=== PATIENT | male | born 1945 | race Caucasian/White ===

== ENCOUNTER 2017-02-06 11:19 | Day surgery (SDC) | payer MEDICARE, OTHER ==
[~2017-02-06 11:19] MED LIST: ADLT ASA LOW81 MG PO; ADVAIR DISK1 INH; ALLERGY RELF10 M1 PO; ALLOPURINOL100 MG PO; BAYER CHEWABLE81 MG PO; BENADRYL25 MG PO; BUMETANIDE2 MG IN; CARVEDILOL6.25 MG PO; CITALOPRAM20 MG PO; CLINDAMYCIN300 M1 PO; COLACE100 MG PO; COUMADIN2.5 MG PO; DOXAZOSIN4 M1 PO; DOXAZOSIN4 MG PO; ESCITALOPRAM OX10 MG PO; FAMOTIDINE20 M1 PO; FINASTERIDE5 MG PO; FLONASE NASAL50 MCG; FLUTICASONE50 MCG; FUROSEMIDE40 MG PO; FUROSEMIDE80 MG OR; HOME O2; HYDRALAZINE25 MG PO; IPRATROPIU0.5 MG/3 M; K-TABS10 MEQ PO; KEFLEX500 M1 PO; KLOR-CON 1010 ME1 PO; LANTUS100 MG/ML SC; LEVAQUIN500 MG PO; LIPITOR20 MG PO; LISINOPRIL10 MG PO; LOPRESSOR12.5 MG PO; LORTAB5 PO; MACROBID100 MG PO; METO50TA52 PO; MILK OF MAG30 ML/UDC PO; NOVOLOG100 IU/1 M; OXYCODONE/ACETA1 TA1; OXYCODONE5 M1 OR; PRAVASTATIN20 MG PO; PREDNISONE10 MG PO; PREVACID30 M2 PO; PRILOSEC20 MG/CAP PO; SPIRONOLACT25 MG PO; SPIRONOLACTONE25 MG PO; TAMSULOSIN0.4 MG PO; TOPROL XL25 MG PO; ULORIC40 MG PO; VENTOLIN HFA IN; VITAMIN C PO; WARFARIN2.5 MG PO; WARFARIN3 MG PO; WARFARIN4 MG PO; ZESTRIL/PRIN5 MG/TA1 PO; ZOFRAN ODT4 MG PO; ZYRTEC10 MG PO; [UNRECOGNIZED DRUG - OTHER] PO
[2017-02-06 15:06] VITALS: BP 108/55
== END 2017-02-06 15:00 | disposition home or self-care (01) ==
LOC: ORM 11:19
PROVIDERS: ATTEND Neurological Surgery
PROC: 3E0T33Z Introduction of Anti-inflammatory into Peripheral Nerves and Plexi, Percutaneous Approach (ICD-10-PCS; principal; 2017-02-06)
PROC: 3E0T3BZ Introduction of Anesthetic Agent into Peripheral Nerves and Plexi, Percutaneous Approach (ICD-10-PCS; 2017-02-06)
DX: M54.17 Radiculopathy, lumbosacral region (principal); M48.06 Spinal stenosis, lumbar region; J44.9 Chronic obstructive pulmonary disease, unspecified

== ENCOUNTER 2017-06-18 06:31 | Inpatient (IN) | payer MEDICARE, OTHER ==
[~2017-06-18] VITALS: Ht 175.3 cm; Wt 142.1 kg
[2017-06-18] MEDS ORDERED: TYLENOL 500MG TAB PO (07:17)
[2017-06-18 07:18] LABS: HEMATOCRIT 37.8 % (39.0-50.0); IMMATURE GRANULOCYTES 0.4 % (0.0-1.0); MEAN CELL VOLUME 79.9 fL CALC (80.0-100.0); MEAN CORPUSCULAR HGB 25.4 pG CALC (26.0-32.0); MEAN CORPUSCULAR HGB CONC 31.7 g/L CALC (32.0-36.0); NEUT# 10.48 thou/uL (1.82-7.42); RED BLOOD COUNT 4.73 mill/uL (4.70-6.10); RED CELL DISTRI WIDTH 18.1 % (11.5-15.5)
[2017-06-18 07:33] LABS: ALBUMIN 4.2 g/dL (3.2-5.0); BILIRUBIN, TOTAL 0.7 mg/dL (0.0-1.4); CALCIUM 9.9 mg/dL (8.4-10.2); CREATININE 1.4 mg/dL (0.7-1.3); POTASSIUM 4.7 mmol/l (3.5-5.1); TOTAL PROTEIN 7.1 g/dL (6.3-8.2)
[2017-06-18 07:36] LABS: INTERNATIONAL NORMALIZED RATIO 2.5 RATIO (0.7-1.3); PROTHROMBIN TIME 29.4 SECONDS (9.0-12.5)
[2017-06-18 09:11] LABS: URINE BILIRUBIN - DIPSTICK NEGATIVE (NEGATIVE); URINE BLOOD DIPSTICK NEGATIVE (NEGATIVE); URINE CLARITY CLEAR; URINE COLOR YELLOW; URINE GLUCOSE - DIPSTICK NEGATIVE (NEGATIVE); URINE KETONE NEGATIVE (NEGATIVE); URINE LEUK ESTERASE NEGATIVE (NEGATIVE); URINE NITRITE - DIPSTICK NEGATIVE (Negative); URINE PROTEIN - DIPSTICK NEGATIVE (NEG-TRACE); URINE SPECIFIC GRAVITY <=1.005; URINE UROBILINOGEN - DIPSTICK 0.2 E.U./dL (0.2)
[2017-06-18 10:50] VITALS: BP 119/65
[2017-06-18 15:31] VITALS: BP 122/75
[2017-06-18 19:27] VITALS: BP 119/41
[2017-06-19] VITALS (7 sets, daily range): BP systolic 91–132; BP diastolic 30–78
[2017-06-19 05:56] LABS: HEMATOCRIT 35.6 % (39.0-50.0); HEMOGLOBIN 11.3 g/dl (14.0-18.0); IMMATURE GRANULOCYTES 0.8 % (0.0-1.0); MEAN CORPUSCULAR HGB 25.4 pG CALC (26.0-32.0); MEAN CORPUSCULAR HGB CONC 31.7 g/L CALC (32.0-36.0); NEUT# 19.15 thou/uL (1.82-7.42); RED BLOOD COUNT 4.45 mill/uL (4.70-6.10); RED CELL DISTRI WIDTH 17.9 % (11.5-15.5)
[2017-06-19 06:05] LABS: INTERNATIONAL NORMALIZED RATIO 2.5 RATIO (0.7-1.3); PROTHROMBIN TIME 28.6 SECONDS (9.0-12.5)
[2017-06-19 06:08] LABS: ANION GAP 17 (6-22 (CALC)); BUN 31 mg/dL (8-23); BUN/CREATININE RATIO 24 (12-20 (CALC)); CALCIUM 8.8 mg/dL (8.4-10.2); CARBON DIOXIDE 20 mmol/l (22-30); CHLORIDE 96 mmol/l (95-108); CREATININE 1.3 mg/dL (0.7-1.3); GFR 54 ML/MIN (>=60 (CALC)); GFR FOR AFR.AMER. > 60 ML/MIN (>=60 (CALC)); GLUCOSE 181 mg/dL (82-115); SODIUM 127 mmol/l (137-146)
[2017-06-19 06:19] LABS: POTASSIUM 5.7 mmol/l (3.5-5.1)
[2017-06-19 08:32] LABS: ALKALINE PHOSPHATASE 73 u/l (38-126); ANION GAP 18 (6-22 (CALC)); BILIRUBIN, TOTAL 0.5 mg/dL (0.0-1.4); BUN 31 mg/dL (8-23); BUN/CREATININE RATIO 23 (12-20 (CALC)); CARBON DIOXIDE 22 mmol/l (22-30); CHLORIDE 94 mmol/l (95-108); CREATININE 1.3 mg/dL (0.7-1.3); GFR 54 ML/MIN (>=60 (CALC)); GFR FOR AFR.AMER. > 60 ML/MIN (>=60 (CALC)); GLUCOSE 179 mg/dL (82-115); SGOT/AST 25 u/l (19-48); SGPT/ALT 31 u/l (11-66); SODIUM 129 mmol/l (137-146); TOTAL PROTEIN 6.8 g/dL (6.3-8.2)
[2017-06-19 08:38] LABS: POTASSIUM 5.3 mmol/l (3.5-5.1)
[2017-06-19 14:42] LABS: CALCIUM 8.6 mg/dL (8.4-10.2); CREATININE 1.4 mg/dL (0.7-1.3); POTASSIUM 5.1 mmol/l (3.5-5.1)
[2017-06-20 04:15] VITALS: BP 115/65
[2017-06-20 06:02] LABS: CALCIUM 9.1 mg/dL (8.4-10.2); CREATININE 1.4 mg/dL (0.7-1.3)
[2017-06-20 06:17] LABS: POTASSIUM 5.3 mmol/l (3.5-5.1)
[2017-06-20 06:27] LABS: HEMATOCRIT 36.5 % (39.0-50.0); HEMOGLOBIN 11.6 g/dl (14.0-18.0); IMMATURE GRANULOCYTES 0.8 % (0.0-1.0); MEAN CELL VOLUME 81.1 fL CALC (80.0-100.0); MEAN CORPUSCULAR HGB 25.8 pG CALC (26.0-32.0); MEAN CORPUSCULAR HGB CONC 31.8 g/L CALC (32.0-36.0); NEUT# 20.39 thou/uL (1.82-7.42); RED BLOOD COUNT 4.5 mill/uL (4.70-6.10)
[2017-06-20 06:33] LABS: INTERNATIONAL NORMALIZED RATIO 2.2 RATIO (0.7-1.3); PROTHROMBIN TIME 25.5 SECONDS (9.0-12.5)
[2017-06-20 09:00] VITALS: BP 123/67
[2017-06-20 11:35] VITALS: BP 125/77
[2017-06-20 16:03] VITALS: BP 137/83
[2017-06-20 19:10] VITALS: BP 120/66; BP 135/75
[2017-06-20 22:30] VITALS: BP 111/67
[2017-06-21 05:25] VITALS: BP 132/74
[2017-06-21 06:04] LABS: HEMATOCRIT 37.8 % (39.0-50.0); HEMOGLOBIN 11.7 g/dl (14.0-18.0); IMMATURE GRANULOCYTES 1.3 % (0.0-1.0); MEAN CELL VOLUME 82.7 fL CALC (80.0-100.0); MEAN CORPUSCULAR HGB 25.6 pG CALC (26.0-32.0); NEUT# 17.17 thou/uL (1.82-7.42); RED BLOOD COUNT 4.57 mill/uL (4.70-6.10); RED CELL DISTRI WIDTH 18.3 % (11.5-15.5)
[2017-06-21 06:14] LABS: ANION GAP 18 (6-22 (CALC)); BUN 36 mg/dL (8-23); BUN/CREATININE RATIO 29 (12-20 (CALC)); CALCIUM 9.4 mg/dL (8.4-10.2); CARBON DIOXIDE 23 mmol/l (22-30); CHLORIDE 101 mmol/l (95-108); CREATININE 1.2 mg/dL (0.7-1.3); GFR 59 ML/MIN (>=60 (CALC)); GFR FOR AFR.AMER. > 60 ML/MIN (>=60 (CALC)); GLUCOSE 145 mg/dL (82-115); POTASSIUM 4.9 mmol/l (3.5-5.1); SODIUM 137 mmol/l (137-146)
[2017-06-21 06:15] LABS: INTERNATIONAL NORMALIZED RATIO 2.1 RATIO (0.7-1.3); PROTHROMBIN TIME 24.2 SECONDS (9.0-12.5)
[2017-06-21 08:02] VITALS: BP 136/47
[2017-06-21 11:44] VITALS: BP 125/58
[2017-06-21 16:05] VITALS: BP 134/57
[2017-06-21 19:00] VITALS: BP 133/56
[2017-06-21 23:10] VITALS: BP 121/60
[2017-06-22 03:40] VITALS: BP 156/81
[2017-06-22 05:37] LABS: ANION GAP 17 (6-22 (CALC)); BUN 33 mg/dL (8-23); BUN/CREATININE RATIO 33 (12-20 (CALC)); CALCIUM 8.8 mg/dL (8.4-10.2); CARBON DIOXIDE 21 mmol/l (22-30); CHLORIDE 102 mmol/l (95-108); GFR > 60 ML/MIN (>=60 (CALC)); GFR FOR AFR.AMER. > 60 ML/MIN (>=60 (CALC)); GLUCOSE 151 mg/dL (82-115); POTASSIUM 5.1 mmol/l (3.5-5.1); SODIUM 136 mmol/l (137-146)
[2017-06-22 05:40] LABS: INTERNATIONAL NORMALIZED RATIO 2.5 RATIO (0.7-1.3); PROTHROMBIN TIME 28.2 SECONDS (9.0-12.5)
[2017-06-22 05:52] LABS: HEMOGLOBIN 10.9 g/dl (14.0-18.0); IMMATURE GRANULOCYTES 1.3 % (0.0-1.0); MEAN CELL VOLUME 82.7 fL CALC (80.0-100.0); MEAN CORPUSCULAR HGB 25.8 pG CALC (26.0-32.0); MEAN CORPUSCULAR HGB CONC 31.1 g/L CALC (32.0-36.0); NEUT# 14.26 thou/uL (1.82-7.42); RED BLOOD COUNT 4.23 mill/uL (4.70-6.10); RED CELL DISTRI WIDTH 18.6 % (11.5-15.5)
[2017-06-22 08:29] VITALS: BP 132/70
[2017-06-22] MEDS ORDERED: FERROUS SULFAT325 MG PO (09:40)
[2017-06-22] MEDS ORDERED: IPRATROPIU0.5 MG/3 M IN (09:40)
[2017-06-22] MEDS ORDERED: ZITHROMAX500 MG PO (09:40)
[2017-06-22] MEDS ORDERED: PREDNISONE10 MG PO (09:41)
[2017-06-22 12:22] VITALS: BP 123/72
== END 2017-06-22 14:08 | disposition home health service (06) | DRG 190 ==
LOC: ED 06:31 → ED-I 10:00 → ED 10:23 → MS2 10:24
PROVIDERS: Emergency Medicine; Nurse Practitioner Family; ADMIT Internal Medicine; ATTEND Internal Medicine
DX: J44.1 Chronic obstructive pulmonary disease with (acute) exacerbation (principal); J18.9 Pneumonia, unspecified organism; N17.9 Acute kidney failure, unspecified; J96.11 Chronic respiratory failure with hypoxia; I13.0 Hypertensive heart and chronic kidney disease with heart failure and stage 1 through stage 4 chronic kidney disease, or unspecified chronic kidney disease; E11.22 Type 2 diabetes mellitus with diabetic chronic kidney disease; I49.5 Sick sinus syndrome; I50.42 Chronic combined systolic (congestive) and diastolic (congestive) heart failure; E87.1 Hypo-osmolality and hyponatremia; Z68.42 Body mass index [BMI] 45.0-49.9, adult; I25.10 Atherosclerotic heart disease of native coronary artery without angina pectoris; M19.90 Unspecified osteoarthritis, unspecified site; E66.01 Morbid (severe) obesity due to excess calories; E78.5 Hyperlipidemia, unspecified; I48.2 Chronic atrial fibrillation; G47.33 Obstructive sleep apnea (adult) (pediatric); I65.29 Occlusion and stenosis of unspecified carotid artery; F32.9 Major depressive disorder, single episode, unspecified; R53.82 Chronic fatigue, unspecified; J84.10 Pulmonary fibrosis, unspecified; J44.0 Chronic obstructive pulmonary disease with (acute) lower respiratory infection; I35.0 Nonrheumatic aortic (valve) stenosis; N18.3 Chronic kidney disease, stage 3 (moderate); M10.9 Gout, unspecified; E87.5 Hyperkalemia; Z98.61 Coronary angioplasty status; Z99.81 Dependence on supplemental oxygen; Z95.1 Presence of aortocoronary bypass graft; Z87.891 Personal history of nicotine dependence; D63.1 Anemia in chronic kidney disease; Z79.01 Long term (current) use of anticoagulants; Z91.14 Patient's other noncompliance with medication regimen

== ENCOUNTER 2017-08-03 10:49 | Emergency (ER) | payer MEDICARE, OTHER ==
[~2017-08-03] VITALS: Ht 175.3 cm; Wt 136.0 kg
[~2017-08-03 10:49] MED LIST changes: +FERROUS SULFAT325 MG PO; +IPRATROPIU0.5 MG/3 M IN; +TYLENOL 500MG TAB PO; +ZITHROMAX500 MG PO
[2017-08-03 11:57] VITALS: BP 137/79
== END 2017-08-03 12:16 | disposition home or self-care (01) ==
LOC: ED 10:49
DX: S51.012A Laceration without foreign body of left elbow, initial encounter (principal); I11.0 Hypertensive heart disease with heart failure; I50.9 Heart failure, unspecified; E11.9 Type 2 diabetes mellitus without complications; J44.9 Chronic obstructive pulmonary disease, unspecified; I48.91 Unspecified atrial fibrillation; I25.10 Atherosclerotic heart disease of native coronary artery without angina pectoris; E66.9 Obesity, unspecified; Z95.1 Presence of aortocoronary bypass graft; W01.0XXA Fall on same level from slipping, tripping and stumbling without subsequent striking against object, initial encounter

== ENCOUNTER 2018-05-01 16:21 | Inpatient (IN) | payer MEDICARE, OTHER ==
[~2018-05-01] VITALS: Ht 175.3 cm; Wt 134.4 kg
[2018-05-01 17:31] LABS: HEMATOCRIT 40.1 % (39.0-50.0); HEMOGLOBIN 12.7 g/dl (14.0-18.0); IMMATURE GRANULOCYTES 0.8 % (0.0-1.0); MEAN CELL VOLUME 86.1 fL CALC (80.0-100.0); MEAN CORPUSCULAR HGB 27.3 pG CALC (26.0-32.0); MEAN CORPUSCULAR HGB CONC 31.7 g/L CALC (32.0-36.0); NEUT# 13.74 thou/uL (1.82-7.42); RED BLOOD COUNT 4.66 mill/uL (4.70-6.10); RED CELL DISTRI WIDTH 17.1 % (11.5-15.5)
[2018-05-01 17:47] LABS: ALBUMIN 3.9 g/dL (3.2-5.0); ALKALINE PHOSPHATASE 77 u/l (38-126); ANION GAP 12 (6-22 (CALC)); BILIRUBIN, TOTAL 0.5 mg/dL (0.0-1.4); BUN 19 mg/dL (8-23); BUN/CREATININE RATIO 21 (12-20 (CALC)); CARBON DIOXIDE 26 mmol/l (22-30); CHLORIDE 100 mmol/l (95-108); CREATININE 0.9 mg/dL (0.7-1.3); GFR > 60 ML/MIN (>=60 (CALC)); GFR FOR AFR.AMER. > 60 ML/MIN (>=60 (CALC)); POTASSIUM 3.7 mmol/l (3.5-5.1); SGOT/AST 27 u/l (19-48); SGPT/ALT 34 u/l (11-66); SODIUM 134 mmol/l (137-146); TOTAL PROTEIN 7.2 g/dL (6.3-8.2)
[2018-05-01] MEDS ORDERED: PULMICORT0.5MG/2ML IN (18:02)
[2018-05-01] MEDS ORDERED: GABAPENTIN300 M2 (18:03)
[2018-05-01 19:20] VITALS: BP 132/80
[2018-05-01] MEDS ORDERED: OXYCONTIN15 MG PO (20:45)
[2018-05-02] VITALS (8 sets, daily range): BP systolic 100–136; BP diastolic 55–74
[2018-05-02 02:41] LABS: URINE BILIRUBIN - DIPSTICK NEGATIVE (NEGATIVE); URINE BLOOD DIPSTICK NEGATIVE (NEGATIVE); URINE COLOR YELLOW; URINE GLUCOSE - DIPSTICK NEGATIVE (NEGATIVE); URINE KETONE NEGATIVE (NEGATIVE); URINE LEUK ESTERASE NEGATIVE (NEGATIVE); URINE NITRITE - DIPSTICK NEGATIVE (Negative); URINE PROTEIN - DIPSTICK NEGATIVE (NEG-TRACE); URINE UROBILINOGEN - DIPSTICK 0.2 E.U./dL (0.2)
[2018-05-02 02:49] LABS: URINE CLARITY CLEAR
[2018-05-02 07:07] LABS: HEMATOCRIT 40.6 % (39.0-50.0); HEMOGLOBIN 12.5 g/dl (14.0-18.0); IMMATURE GRANULOCYTES 1.2 % (0.0-1.0); MEAN CELL VOLUME 87.1 fL CALC (80.0-100.0); MEAN CORPUSCULAR HGB 26.8 pG CALC (26.0-32.0); MEAN CORPUSCULAR HGB CONC 30.8 g/L CALC (32.0-36.0); NEUT# 12.09 thou/uL (1.82-7.42); RED BLOOD COUNT 4.66 mill/uL (4.70-6.10)
[2018-05-02 07:21] LABS: ANION GAP 15 (6-22 (CALC)); BUN 16 mg/dL (8-23); BUN/CREATININE RATIO 19 (12-20 (CALC)); CARBON DIOXIDE 22 mmol/l (22-30); CHLORIDE 103 mmol/l (95-108); CREATININE 0.8 mg/dL (0.7-1.3); GFR > 60 ML/MIN (>=60 (CALC)); GFR FOR AFR.AMER. > 60 ML/MIN (>=60 (CALC)); POTASSIUM 4.1 mmol/l (3.5-5.1); SODIUM 135 mmol/l (137-146)
[2018-05-02 08:09] LABS: INTERNATIONAL NORMALIZED RATIO 1.9 RATIO (0.7-1.3); PROTHROMBIN TIME 21.9 SECONDS (9.0-12.5)
[2018-05-02 16:19] LABS: MAGNESIUM 1.9 mg/dL (1.6-2.3)
[2018-05-02] MEDS ORDERED: INCRUSE EL62.5 MCG/I PO (21:53)
[2018-05-02] MEDS ORDERED: DALIRESP500 MCG PO (21:55)
[2018-05-03 04:19] VITALS: BP 125/61
[2018-05-03 06:01] LABS: HEMATOCRIT 39.7 % (39.0-50.0); HEMOGLOBIN 12.7 g/dl (14.0-18.0); IMMATURE GRANULOCYTES 0.8 % (0.0-1.0); MEAN CELL VOLUME 86.1 fL CALC (80.0-100.0); MEAN CORPUSCULAR HGB 27.5 pG CALC (26.0-32.0); NEUT# 20.15 thou/uL (1.82-7.42); RED BLOOD COUNT 4.61 mill/uL (4.70-6.10); RED CELL DISTRI WIDTH 16.8 % (11.5-15.5)
[2018-05-03 07:31] LABS: ANION GAP 17 (6-22 (CALC)); BUN 20 mg/dL (8-23); BUN/CREATININE RATIO 22 (12-20 (CALC)); CARBON DIOXIDE 21 mmol/l (22-30); CHLORIDE 100 mmol/l (95-108); CREATININE 0.9 mg/dL (0.7-1.3); GFR > 60 ML/MIN (>=60 (CALC)); GFR FOR AFR.AMER. > 60 ML/MIN (>=60 (CALC)); MAGNESIUM 2.2 mg/dL (1.6-2.3); POTASSIUM 4.9 mmol/l (3.5-5.1); SODIUM 133 mmol/l (137-146)
[2018-05-03 07:39] VITALS: BP 116/57
[2018-05-03 12:59] VITALS: BP 118/59
[2018-05-03 17:02] VITALS: BP 112/86
[2018-05-03 19:55] VITALS: BP 120/46
[2018-05-04] VITALS: BP 102/57
[2018-05-04 04:55] VITALS: BP 118/73
[2018-05-04 05:40] LABS: HEMATOCRIT 41.4 % (39.0-50.0); HEMOGLOBIN 12.8 g/dl (14.0-18.0); IMMATURE GRANULOCYTES 1.4 % (0.0-1.0); MEAN CELL VOLUME 87.3 fL CALC (80.0-100.0); MEAN CORPUSCULAR HGB CONC 30.9 g/L CALC (32.0-36.0); NEUT# 21.16 thou/uL (1.82-7.42); RED BLOOD COUNT 4.74 mill/uL (4.70-6.10); RED CELL DISTRI WIDTH 16.8 % (11.5-15.5)
[2018-05-04 05:55] LABS: PROTHROMBIN TIME 23.2 SECONDS (9.0-12.5)
[2018-05-04 07:20] VITALS: BP 141/62
[2018-05-04 07:52] LABS: ALBUMIN 3.7 g/dL (3.2-5.0); ALKALINE PHOSPHATASE 79 u/l (38-126); ANION GAP 14 (6-22 (CALC)); BILIRUBIN, TOTAL 0.5 mg/dL (0.0-1.4); BUN 31 mg/dL (8-23); BUN/CREATININE RATIO 31 (12-20 (CALC)); CARBON DIOXIDE 25 mmol/l (22-30); CHLORIDE 100 mmol/l (95-108); GFR > 60 ML/MIN (>=60 (CALC)); GFR FOR AFR.AMER. > 60 ML/MIN (>=60 (CALC)); MAGNESIUM 2.5 mg/dL (1.6-2.3); SGOT/AST 36 u/l (19-48); SGPT/ALT 58 u/l (11-66); SODIUM 133 mmol/l (137-146); TOTAL PROTEIN 6.6 g/dL (6.3-8.2)
[2018-05-04 07:56] LABS: POTASSIUM 5.7 mmol/l (3.5-5.1)
[2018-05-04 11:22] VITALS: BP 127/76
[2018-05-04 15:05] VITALS: BP 124/61
[2018-05-04 19:35] VITALS: BP 133/72
[2018-05-05 00:10] VITALS: BP 126/73
[2018-05-05 04:55] VITALS: BP 128/83
[2018-05-05 07:25] VITALS: BP 143/73
[2018-05-05 10:57] VITALS: BP 123/61
[2018-05-05 11:52] LABS: HEMATOCRIT 40.3 % (39.0-50.0); HEMOGLOBIN 12.5 g/dl (14.0-18.0); IMMATURE GRANULOCYTES 1.4 % (0.0-1.0); MEAN CORPUSCULAR HGB 27.3 pG CALC (26.0-32.0); NEUT# 19.75 thou/uL (1.82-7.42); RED BLOOD COUNT 4.58 mill/uL (4.70-6.10); RED CELL DISTRI WIDTH 17.1 % (11.5-15.5)
[2018-05-05 12:10] LABS: ANION GAP 16 (6-22 (CALC)); BUN 32 mg/dL (8-23); BUN/CREATININE RATIO 34 (12-20 (CALC)); CARBON DIOXIDE 22 mmol/l (22-30); CHLORIDE 102 mmol/l (95-108); CREATININE 0.9 mg/dL (0.7-1.3); GFR > 60 ML/MIN (>=60 (CALC)); GFR FOR AFR.AMER. > 60 ML/MIN (>=60 (CALC)); POTASSIUM 4.2 mmol/l (3.5-5.1); SODIUM 136 mmol/l (137-146)
[2018-05-05 12:28] LABS: INTERNATIONAL NORMALIZED RATIO 1.9 RATIO (0.7-1.3); PROTHROMBIN TIME 21.3 SECONDS (9.0-12.5)
[2018-05-05 15:41] VITALS: BP 143/79
[2018-05-05 19:15] VITALS: BP 128/80
[2018-05-06 00:33] VITALS: BP 127/85
[2018-05-06 05:09] VITALS: BP 145/78
[2018-05-06 05:15] LABS: HEMATOCRIT 38.7 % (39.0-50.0); IMMATURE GRANULOCYTES 1.9 % (0.0-1.0); MEAN CELL VOLUME 87.2 fL CALC (80.0-100.0); RED BLOOD COUNT 4.44 mill/uL (4.70-6.10); RED CELL DISTRI WIDTH 17.1 % (11.5-15.5)
[2018-05-06 05:34] LABS: INTERNATIONAL NORMALIZED RATIO 2.2 RATIO (0.7-1.3); PROTHROMBIN TIME 24.6 SECONDS (9.0-12.5)
[2018-05-06 05:35] LABS: ANION GAP 12 (6-22 (CALC)); BUN 32 mg/dL (8-23); BUN/CREATININE RATIO 28 (12-20 (CALC)); CARBON DIOXIDE 25 mmol/l (22-30); CHLORIDE 102 mmol/l (95-108); CREATININE 1.2 mg/dL (0.7-1.3); GFR 59 ML/MIN (>=60 (CALC)); GFR FOR AFR.AMER. > 60 ML/MIN (>=60 (CALC)); POTASSIUM 4.5 mmol/l (3.5-5.1); SODIUM 134 mmol/l (137-146)
[2018-05-06 07:35] VITALS: BP 145/50
[2018-05-06 11:45] VITALS: BP 120/67
[2018-05-06] MEDS ORDERED: FUROSEMIDE40 MG PO (13:25)
[2018-05-06] MEDS ORDERED: PREDNISONE10 MG PO (13:25)
[2018-05-06] MEDS ORDERED: LOPRESSOR25 MG PO (13:25)
[2018-05-06] MEDS ORDERED: LEVAQUIN750 MG PO (13:25)
== END 2018-05-06 14:23 | disposition home or self-care (01) | DRG 190 ==
LOC: ED 16:21 → ED-I 16:54 → ED 16:54 → ED-I 18:02 → ED 18:18 → MS2 18:19
PROVIDERS: Emergency Medicine; Nurse Practitioner; Nurse Practitioner Family; ADMIT Internal Medicine; ATTEND Internal Medicine
DX: J44.1 Chronic obstructive pulmonary disease with (acute) exacerbation (principal); I50.23 Acute on chronic systolic (congestive) heart failure; E66.2 Morbid (severe) obesity with alveolar hypoventilation; Z68.41 Body mass index [BMI] 40.0-44.9, adult; E87.2 Acidosis; I11.0 Hypertensive heart disease with heart failure; E11.9 Type 2 diabetes mellitus without complications; I25.10 Atherosclerotic heart disease of native coronary artery without angina pectoris; M19.90 Unspecified osteoarthritis, unspecified site; I48.2 Chronic atrial fibrillation; M10.9 Gout, unspecified; K59.00 Constipation, unspecified; R91.1 Solitary pulmonary nodule; E87.5 Hyperkalemia; I25.5 Ischemic cardiomyopathy; Z87.891 Personal history of nicotine dependence; Z95.1 Presence of aortocoronary bypass graft; Z99.81 Dependence on supplemental oxygen; Z79.01 Long term (current) use of anticoagulants; R58 Hemorrhage, not elsewhere classified
CPT/HCPCS: G0378

== ENCOUNTER → 2019-01-02 | Outpatient (REF) | payer MEDICARE, OTHER ==
[~2019-01-02] MED LIST changes: +DALIRESP500 MCG PO; +DIGOXIN0.125 MG PO; +DOXYCYCL HYC100 MG PO; +GABAPENTIN300 M2 PO; +INCRUSE EL62.5 MCG/I PO; +LASIX40 MG PO; +LEVAQUIN750 MG PO; +LOPRESSOR25 MG PO; +LOSARTAN POT50 MG PO; +OXYCONTIN15 MG PO; +PROAIR HFA IN; +PULMICORT0.5MG/2ML IN; +SINGULAIR10 MG PO; +XANAX0.25 MG PO
[2019-01-02 16:24] LABS: HEMATOCRIT 35.5 % (39.0-50.0); HEMOGLOBIN 11.3 g/dl (14.0-18.0); IMMATURE GRANULOCYTES 0.5 % (0.0-5.0); MEAN CORPUSCULAR HGB 25.2 pG CALC (26.0-32.0); MEAN CORPUSCULAR HGB CONC 31.8 g/L CALC (32.0-36.0); RED BLOOD COUNT 4.48 mill/uL (4.70-6.10); RED CELL DISTRI WIDTH 19.8 % (11.5-15.5)
[2019-01-02 16:29] LABS: MEAN CELL VOLUME 79.2 fL CALC (80.0-100.0)
[2019-01-02 16:35] LABS: ALKALINE PHOSPHATASE 69 u/l (38-126); ANION GAP 17 (6-22 (CALC)); BILIRUBIN, TOTAL 0.8 mg/dL (0.0-1.4); BUN 19 mg/dL (8-23); BUN/CREATININE RATIO 15 (12-20 (CALC)); CALCULATED LDLCHOLESTEROL 74 mg/dL (62-129 (CALC)); CARBON DIOXIDE 24 mmol/l (22-30); CHLORIDE 101 mmol/l (95-108); CHOLESTEROL HDL RATIO 2.7 (<4.4 (CALC)); CREATININE 1.3 mg/dL (0.7-1.3); GFR 54 ML/MIN (>=60 (CALC)); GFR FOR AFR.AMER. > 60 ML/MIN (>=60 (CALC)); HDL CHOLESTEROL 53 mg/dL (>=40); POTASSIUM 3.7 mmol/l (3.5-5.1); SGOT/AST 25 u/l (19-48); SODIUM 139 mmol/l (137-146); TOTAL CHOLESTEROL 144 mg/dl (0-199); TOTAL PROTEIN 6.7 g/dL (6.3-8.2); TOTAL TRIGLYCERIDES 88 mg/dl (30-149); VLDL CHOLESTROL 18 mg/dl (0-38 (CALC))
[2019-01-02 16:56] LABS: ALBUMIN 3.9 g/dL (3.2-5.0)
== END | disposition home or self-care (01) ==
LOC: LAB 15:42
PROVIDERS: ATTEND Internal Medicine
DX: E11.42 Type 2 diabetes mellitus with diabetic polyneuropathy (principal); E29.1 Testicular hypofunction

== ENCOUNTER 2019-01-09 15:07 | Emergency (ER) | payer MEDICARE, OTHER ==
[~2019-01-09] VITALS: Ht 175.3 cm; Wt 118.2 kg
[~2019-01-09 15:07] MED LIST changes: -DOXYCYCL HYC100 MG PO
[2019-01-09] MEDS ORDERED: DOXYCYCL HYC100 MG PO (15:59)
[2019-01-09 16:23] VITALS: BP 123/60
== END 2019-01-09 16:33 | disposition home or self-care (01) ==
LOC: ED 15:07
DX: L03.114 Cellulitis of left upper limb (principal); E11.9 Type 2 diabetes mellitus without complications; J43.9 Emphysema, unspecified; I49.9 Cardiac arrhythmia, unspecified; Z95.0 Presence of cardiac pacemaker; Z99.81 Dependence on supplemental oxygen